=== PATIENT | female | born 1935 | race Caucasian/White ===

== ENCOUNTER 2022-07-31 00:10 | Emergency (ER) | payer MEDICARE, OTHER ==
[~2022-07-31] VITALS: Ht 165.1 cm; Wt 61.2 kg
[2022-07-31] MEDS ORDERED: MIRT-121 PO (00:38)
[2022-07-31] MEDS ORDERED: MINE133E RC (00:38)
[2022-07-31] MEDS ORDERED: FAMO-132 PO (00:38)
[2022-07-31] MEDS ORDERED: PSYL575P22 PO (00:38)
[2022-07-31] MEDS ORDERED: ATOR20TA PO (00:38)
[2022-07-31] MEDS ORDERED: BISA10SU61 RC ×2 (00:38→04:40)
[2022-07-31] MEDS ORDERED: ASPI81TA31 PO (00:38)
[2022-07-31] MEDS ORDERED: CARV3.122 PO (00:38)
[2022-07-31] MEDS ORDERED: MAGN400O6 PO (00:38)
[2022-07-31] MEDS ORDERED: AMLO-212 PO (00:38)
[2022-07-31] MEDS ORDERED: ACET-3117 PO (00:38)
[2022-07-31] MEDS: IV NORMAL SALINE 1000 ML BAG IV ONE (00:52)
[2022-07-31 00:53] LABS: HEMATOCRIT 36.3 % (31.2-41.9); MEAN CORPUSCULAR HEMOGLOBIN 28.7 uug (24.7-32.8); MEAN CORPUSCULAR VOLUME 89.9 fL (75.5-95.3); PLATELET COUNT (AUTO) 155 K/uL (179-408)
--- NOTE | 2022-07-31 00:55 | NUR ---
Patient taken to CT by deepika Hatfield
[2022-07-31 01:29] LABS: ALANINE AMINOTRANSFERASE 12 U/L (14-59); ALKALINE PHOSPHATASE 70 U/L (50-136); ASPARTATE AMINOTRANSFERASE 7 U/L (15-37); BILIRUBIN,DIRECT 0.1 mg/dL (0.0-0.2); BILIRUBIN,TOTAL 0.3 mg/dL (0.2-1.0); CARBON DIOXIDE 29 mmol/L (21-32); CHLORIDE 106 mmol/L (98-107); CREATININE 1.2 mg/dL (0.6-1.3); GLUCOSE 112 mg/dL (74-106); LIPASE 174 U/L (73-393); POTASSIUM 4.4 mmol/L (3.5-5.1); TOTAL PROTEIN, SERUM 8.4 g/dL (6.4-8.2); UREA NITROGEN, BLOOD 24 mg/dL (7-18)
[2022-07-31] MEDS ORDERED: FLEET ENEMA 133 ML BOTTLE RC ONE (01:34)
[2022-07-31 01:42] LABS: *BILIRUBIN,URIN NEGATIVE (NEGATIVE); *BLOOD, URINE 2+ (NEGATIVE); *COLOR,URINE YELLOW (YELLOW); *KETONES,URINE NEGATIVE (NEGATIVE); *UROBILINOGEN,URINE 0.2 E.U./dl (NORMAL); LEUKOCYTE ESTERASE ,URINE 1+ (NEGATIVE); NITRITE, URINE POSITIVE (NEGATIVE); PH,URINE 5.5 (5.0-8.0); UGLUCOSE NEGATIVE (NEGATIVE)
[2022-07-31] MEDS: FLEET ENEMA 133 ML BOTTLE RC ONE (01:48)
[2022-07-31 01:57] LABS: *CLARITY,URINE HAZY (CLEAR)
[2022-07-31 01:59] LABS: BACTERIA,URINE MANY /HPF (NONE SEEN); RBC,URINE 20-50 /HPF (0-3); SQUAMOUS EPITHELIAL CELL,UR MANY /HPF (NONE SEEN)
[2022-07-31] MEDS ORDERED: CEFTRIAXONE /D5W 50ML IVPB **ER PYXIS IV ONE (02:25)
[2022-07-31] MEDS: CEFTRIAXONE 1 G in IV DEXTROSE 5% 50 ML IV ONE (02:27)
[2022-07-31] MEDS ORDERED: SULF1TAB48 PO (04:40)
[2022-07-31] MEDS ORDERED: BISA-79 PO (04:40)
--- NOTE | 2022-07-31 04:42 | NUR ---
called [facility] ambulance for transport. ETA 60-75 mins
--- NOTE | 2022-07-31 05:52 | NUR ---
[facility] at bedside for transport
--- NOTE | 2022-07-31 05:53 | NUR ---
Patient discharged to in stable condition via [facility] ambulance.. Written and verbal after care instructions given to EMS. Stressed follow up or return to ER for worsening s/s. Report given to SNF. made aware patient is discharged
[2022-07-31 05:54] VITALS: BP 112/48
== END 2022-07-31 05:55 ==
LOC: ER 00:31
DX: K56.41 Fecal impaction (principal); N30.90 Cystitis, unspecified without hematuria; F09 Unspecified mental disorder due to known physiological condition; J44.9 Chronic obstructive pulmonary disease, unspecified; K21.9 Gastro-esophageal reflux disease without esophagitis; N18.9 Chronic kidney disease, unspecified; E78.5 Hyperlipidemia, unspecified; Z79.899 Other long term (current) drug therapy; Z79.82 Long term (current) use of aspirin
CPT/HCPCS: 99285; 74176; 96365; 71045; 96361; 80076; 80048; 81001; 83690; 85025; 84484; 36415; 93005; 83605; J0696; J7040; A4663; C1758